=== PATIENT | female | born 1955 ===

== ENCOUNTER 2021-04-17 11:56 | Emergency (ER) | payer MEDICARE ==
[2021-04-17 12:25] VITALS: BP 138/78; PULSE 87; RESP 18; TEMP 98.1
--- NOTE | 2021-04-17 12:30 | XR ---
EXAMINATION TYPE: XR foot complete RT DATE OF EXAM: 04/17/2021 COMPARISON: NONE HISTORY: Pain TECHNIQUE: Three views are submitted. FINDINGS: There is a cortical step off involving the mid shaft of the proximal phalanx fourth digit. Calcaneal spurs noted.. Hypertrophic arthropathy first MTP.. IMPRESSION: 1. Findings suspicious for hairline minimally displaced fracture proximal phalanx fourth digit correl ate with point tenderness..
--- NOTE | 2021-04-17 12:50 | ED ---
General Adult HPI - General Chief complaint: Extremity Injury, Lower Stated complaint: Foot injury Time Seen by Provider: 04/17/21 12:27 Source: patient, RN notes reviewed Mode of arrival: ambulatory Limitations: physical limitation - History of Present Illness Initial comments: Patient is a pleasant 65-year-old female presenting to the emergency Department with right foot injury. Patient states yesterday she accidentally kicked a stand. Patient states she's had discomfort of her foot since that time. Patient is able to ambulate with discomfort. No other area of injury or concern. No fall or head injury. No history of chronic foot problems. Discomfort is moderate but increases with movement. - Related Data Allergies Allergy/AdvReac Type Severity Reaction Status Date / Time No Known Allergies Allergy Verified 04/17/21 12:11 Review of Systems ROS Statement: Those systems with pertinent positive or pertinent negative responses have been documented in the HPI. ROS Other: All systems not noted in ROS Statement are negative. Constitutional: Denies: fever Eyes: Denies: eye pain ENT: Denies: ear pain Respiratory: Denies: cough Cardiovascular: Denies: chest pain Endocrine: Denies: fatigue Gastrointestinal: Denies: abdominal pain Genitourinary: Denies: dysuria Musculoskeletal: Reports: as per HPI Skin: Denies: rash Neurological: Denies: weakness Past Medical History Past Medical History: Hyperlipidemia, Hypertension, Thyroid Disorder History of Any Multi-Drug Resistant Organisms: None Reported Past Surgical History: Section Additional Past Surgical History / Comment(s): thumb, thyroid Past Psychological History: No Psychological Hx Reported Smoking Status: Never smoker Past Alcohol Use History: None Reported Past Drug Use History: None Reported General Exam Limitations: physical limitation General appearance: alert, in no apparent distress Head exam: Present: normocephalic Eye exam: Present: normal appearance Neck exam: Present: normal inspection Respiratory exam: Present: normal lung sounds bilaterally Cardiovascular Exam: Present: regular rate, normal rhythm Expanded Peripheral pulses: 2+: Dorsalis Pedis (R) GI/Abdominal exam: Present: soft. Absent: tenderness Extremities exam: Present: tenderness (Right distal medial foot with tenderness and ecchymosis. There is tenderness on the fourth toe as well. Distally the extremity is Norvasc intact. Pulses intact. Cap refill less than 2 seconds. Sensation intact.) Neurological exam: Present: alert. Absent: motor sensory deficit Psychiatric exam: Present: normal affect, normal mood Skin exam: Present: other (Ecchymosis right foot) Course Vital Signs 04/17/21 12:09 Temperature 98.1 F Pulse Rate 87 Respiratory 18 Rate Blood Pressure 138/78 O2 Sat by Pulse 96 Oximetry Medical Decision Making - Medical Decision Making Patient reevaluated and updated. Patient advised to shakeel tape toes - Radiology Data Radiology results: image reviewed (X-ray suspicious for hairline fracture fourth toe) Disposition Clinical Impression: Toe fracture, right Disposition: HOME SELF-CARE Condition: Stable Instructions (If sedation given, give patient instructions): Toe Fracture (ED) Additional Instructions: Ice to affected area. Used postoperative shoe. Shakeel tape toes. Return for increased pain, swelling, worsening symptoms or any other concerns. Please follow-up with primary care physician. Is patient prescribed a controlled substance at d/c from ED?: No Referrals: Suyapa Sarmiento MD [STAFF PHYSICIAN] - 1-2 days Time of Disposition: 12:50
== END 2021-04-17 12:55 | disposition home or self-care (01) ==
LOC: EC 11:56
DX: S92.501A Displaced unspecified fracture of right lesser toe(s), initial encounter for closed fracture (principal); I10 Essential (primary) hypertension; E78.5 Hyperlipidemia, unspecified; W22.8XXA Striking against or struck by other objects, initial encounter
CPT/HCPCS: 99283

== ENCOUNTER → 2025-01-26 | Outpatient (CLI) | payer MEDICARE ==
--- NOTE | 2025-01-26 13:25 | US ---
EXAMINATION TYPE: US abdomen APPY DATE OF EXAM: 01/26/2025 COMPARISON: NONE CLINICAL INDICATION: Female, 69 years old with history of R10.31 RT LOWER QUAD PAIN; pain TECHNIQUE: Multiple sonographic images of the right lower quadrant were obtained with graded compress ion with grayscale and color Doppler imaging. 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 IMPRESSION: Nonvisualization of the appendix in the right lower quadrant. This does not exclude diagnosis of acut e appendicitis. Consider further evaluation with CT if there is continued clinical concern. [facility], , 01/26/2025 1:23 PM
== END | disposition home or self-care (01) ==
LOC: RADUSWWP 13:06
PROVIDERS: ATTEND Family Medicine
DX: R10.31 Right lower quadrant pain (principal)
CPT/HCPCS: 76705